=== PATIENT | female | born 1940 | race Caucasian/White ===

== ENCOUNTER 2024-08-09 09:41 | Day surgery (SDC) | payer MEDICARE, SELFPAY ==
--- NOTE | 2024-08-06 07:00 | EKG_ITS ---
[facility] Test Date: 2024-08-06 Pat Name: KATHERINE LU Department: Room: - Gender: Female Yard Coordinator: SYLVESTER : 1940 Requested By: Pawan Christiansen Order Number: [id number] Reading MD: Pawan Christiansen Measurements Intervals [place] Rate: 70 P: 77 HI: 162 QRS: -16 QRSD: 91 T: 49 QT: 361 QTc: 392 Interpretive Statements SINUS RHYTHM VOLTAGE CRITERIA FOR LVH [MEETS CRITERIA IN ONE OF: R(aVL), S(V1), R(V5), R(V5/V6)+S(V1)] POSSIBLE ANTERIOR MYOCARDIAL INFARCTION , OF INDETERMINATE AGE [30 ms Q WAVE IN V3/V4, OR R < 0.2 mV IN V4] Compared to ECG 03/14/2023 19:09:01 Left ventricular hypertrophy now present Myocardial infarct finding now present /store/S0/[id number]/ecg/[id number].pdf
[2024-08-06 11:54] LABS: Basophils % (Auto) 1 % (0-2.5); Eosinophils # (Auto) 0.1 Thou/mm3 (0.0-0.5); Eosinophils % (Auto) 2 % (0-10); Hematocrit 39.7 % (36.0-46.0); Hemoglobin 13.7 g/dL (12.0-16.0); Immature Granulocytes % (Auto) 0 % (0-0); Immature Granulocytes Auto 0.03 Thou/mm3 (0.00-0.00); Lymphocytes # (Auto) 1.7 Thou/mm3 (1.0-4.8); Lymphocytes % (Auto) 24 % (10-50); Mean Corpuscular HGB Conc 34.5 g/dl (31.0-37.0); Mean Corpuscular Hemoglobin 30.6 pg (25.0-35.0); Mean Corpuscular Volume 89 fL (80-100); Monocytes # (Auto) 0.7 Thou/mm3 (0.0-0.8); Monocytes % (Auto) 10 % (0-12); Neutrophils # (Auto) 4.6 Thou/mm3 (1.8-7.7); Neutrophils % (Auto) 64 % (37-80); Nucleated Red Blood Cell % 0 /100 WBC (0); Platelet Count 235 Thou/mm3 (140-440); RDW Standard Deviation 42.8 fL (36.4-46.3); Red Blood Count 4.47 Miln/mm3 (4.00-5.20); White Blood Count 7.3 Thou/mm3 (3.6-11.0)
[2024-08-06 12:04] LABS: Anion Gap 7 (7-16); BUN/Creatinine Ratio 16 Ratio (12-20); Blood Urea Nitrogen 16 mg/dL (9-23); Calcium 9.6 mg/dL (8.3-10.6); Chloride 108 mMol/L (98-107); Glucose 92 mg/dL (74-106); Osmolality,Calculated 286 (275-295); Potassium 4.1 mMol/L (3.4-5.1); Sodium 143 mMol/L (136-145); eGFR 56 See Note
[2024-08-06 12:09] LABS: Partial Thromboplastin Time 25.7 Seconds (22.0-36.0); Prothrombin Time 11.1 Seconds (9.0-12.2)
[2024-08-06 13:55] VITALS: BMI 25.7
[2024-08-09] VITALS (14 sets, daily range): BP systolic 125–162; BP diastolic 55–92; PULSE 65–86; RESP 15–19; TEMP 36.3–37; O2SAT 95–99; BMI 26.3
--- NOTE | 2024-08-09 16:55 | PC.NURSE ---
discharge instructions given to and (yen) right groin looks good, no signs or hematoma or bledding, gauze is clean dry and intact and bilateral dorsalis pulses feel normal
--- NOTE | 2024-08-10 01:04 | ESOP_ITS ---
RE: KATHERINE LU : 1940 DATE OF OPERATION: 08/09/2024 PROCEDURE PERFORMED: 1. Diagnostic right and left heart cardiac catheterization, selective coronary angiogram, and left ventricular angiogram, CPT 93058. 2. Aortic root angiogram and iliofemoral angiogram. 3. Ultrasound-guided access right femoral artery and femoral vein. 4. Conscious sedation 40 minutes duration. DIAGNOSES: Severe aortic stenosis, symptomatic shortness of breath on exertion. HISTORY AND INDICATIONS: The patient is an 84-year-old female with a history of hypertension and has been doing well. Recently she has progressively shortness of breath on exertion. She is known to have severe aortic stenosis in the past, but it has worsened significantly. Aortic velocity has increased to more than 4 m/sec, gradient of 60 mmHg _. Aortic valve area is 0.5 square centimeter on echo hence cardiac catheterization and coronary angiogram prior to recommending TAVR procedure, transcutaneous aortic valve replacement. The patient meets clinical indication for TAVR. DESCRIPTION OF PROCEDURE: The patient was brought to cardiac catheterization lab where she was given 2 mg of Versed, 50 mcg of fentanyl for conscious sedation. Right radial approach was initially taken. The right radial artery was very small, unable to cannulate and the right femoral artery and right femoral vein were cannulated by micropuncture technique. After local anesthesia was given with 1% Xylocaine, a 5-Irish sheath was introduced in the right femoral artery. A 7-Irish sheath was introduced in the right femoral vein. Right heart catheterization was performed with Glennie-Duncan catheter. Cardiac output was obtained. Right heart pressures were measured and found to be normal. Left heart catheterization performed with a 5-Irish pigtail catheter. Aortic root angiogram performed. Left ventricular angiogram performed. Left aortic valve was crossed using a straight guidewire, LV pressure was measured, pull back pressure measured. Subsequently selective right and left coronary angiogram performed by Anjel catheter 5-Irish diagnostic catheter. Multiple views were obtained. Cardiac catheterization showed following findings. HEMODYNAMICS: Right atrial pressure was 0 mmHg. Right ventricular pressure 20/0. Pulmonary artery pressure is 21/1 . Pulmonary wedge pressure is 3 mmHg. The left ventricular pressure is 204/8 mmHg. End diastolic pressure is 12. Aortic pressure 126/49 mmHg. Xwpq-[id number] gradient 70 mmHg and mean gradient appears to at 62 mmHg. Aortic valve area is 0.4 cm2. Cardiac output was 3.37 L/min. Coronary angiogram showed following findings: The right coronary artery large and dominant, appears normal posterior descending artery appears normal. Left coronary system: Left main coronary artery is normal. Left anterior descending artery is normal. Left ventricular angiogram showed normal left ventricular wall motion with LVEF 65 % Aortic valve showed heavy calcification on fluoroscopy. Aortic angiogram showed, aortic root appears normal in size. Ascending aorta, descending thoracic aorta, abdominal aorta and iliac vessels appear normal with good caliber. SUMMARY OF FINDINGS: 1. Severe calcific aortic stenosis with a peak gradient of 75 mmHg, mean gradient of 62 mmHg, aortic valve area of 0.4 cm2 size with critical and severe aortic stenosis. 2. Normal pulmonary artery pressure. 3. Normal coronary arteries. 4. Normal left VENTRICLE FUNCTION_ RECOMMENDATIONS: The patient is an excellent candidate for TAVR procedure. Aortic root angiogram did show evidence of mild aortic regurgitation as well. The patient is a good candidate for TAVR procedure because of severe and critical aortic stenosis and mild aortic regurgitation. We will wait for a TAVR program at [facility]. Dr. Haas will be consulted for the procedure in the next 4-6 weeks. DT: 23:36:23 TT: 00:25:00 Ref: [id number] - TID: [id number] [facility]PITALJeanie
== END 2024-08-09 16:41 | disposition home or self-care (01) ==
LOC: SCCL 09:41
PROVIDERS: PCP Internal Medicine; Referring Provider Internal Medicine Cardiovascular Disease; Visit Provider Internal Medicine Cardiovascular Disease
PROC: (CPT 93460; principal; 2024-08-09 11:30)
DX: I25.118 Atherosclerotic heart disease of native coronary artery with other forms of angina pectoris (principal); I10 Essential (primary) hypertension; I35.0 Nonrheumatic aortic (valve) stenosis; Z01.810 Encounter for preprocedural cardiovascular examination
CPT/HCPCS: 93460; G0278; 36415; 80048; 85025; 85610; 85730; 93005; 99152; 99153; A4649; C1769; C1887; C1894; J0153; J0171; J0282; J0461; J1643; J2250; J2310; J2371; J3010; J3490; Q9967

== ENCOUNTER → 2024-11-10 | Outpatient (CLI) | payer MEDICARE, BC, SELFPAY ==
[2024-11-10 12:24] LABS: Anion Gap 10 (7-16); BUN/Creatinine Ratio 8 Ratio (12-20); Blood Urea Nitrogen 8 mg/dL (9-23); Calcium 9.7 mg/dL (8.3-10.6); Carbon Dioxide 28.3 mMol/L (20.0-31.0); Chloride 105 mMol/L (98-107); Creatinine (Component) 1.0 mg/dL (0.6-1.3); Glucose 101 mg/dL (74-106); Magnesium 1.6 mg/dL (1.6-2.6); Osmolality,Calculated 283 (275-295); Potassium 3.5 mMol/L (3.4-5.1); Sodium 143 mMol/L (136-145); eGFR 56 See Note
== END | disposition home or self-care (01) ==
PROVIDERS: PCP Internal Medicine; Referring Provider Internal Medicine Cardiovascular Disease; Visit Provider Internal Medicine Cardiovascular Disease
DX: I35.0 Nonrheumatic aortic (valve) stenosis (principal)
CPT/HCPCS: 36415; 80048; 83735

== ENCOUNTER 2024-11-27 13:04 | Emergency (ER) | payer MEDICARE, BC, SELFPAY ==
[2024-11-27 13:14] VITALS: BP 138/79; PULSE 94; RESP 19; TEMP 37; O2SAT 98; BMI 24.5
[2024-11-27] MEDS: DiphenhydrAMINE ELIX 25 MG/10 ML UDC 12.5 MG PO (13:51)
[2024-11-27] MEDS: DEXAMETHASONE SOD PHOS INJ 10 MG/ML VIAL PO (13:51)
--- NOTE | 2024-11-27 13:54 | EDNOTE_ITS ---
ED Skin Abcess FB-RME/HPI General Chief complaint: Skin/Abscess/Foreign Body Stated complaint: RASH ON NECK Time Seen by Provider: 11/27/24 13:28 Arrival date/time: 11/27/24 13:04 84-year-old female presents to the emergency department today for plaints of rash on her neck for the last couple of weeks patient reports the rash has improved but still lingers. Patient reports the rash is itchy Limitations: no limitations Related Data Home Medications ?Medication ?Instructions ?Recorded ?Confirmed estradiol 0.5 mg tablet 0.5 mg PO QDAY ##0 07/22/13 08/09/24 hydrochlorothiazide 25 mg tablet 25 mg PO QAM #0 tabs 07/22/13 08/09/24 losartan 50 mg tablet 100 mg PO QDAY 10/04/1807/27 alendronate 70 mg tablet 70 mg PO QWEEK 08/09/2407/27 potassium 20 mg chewable tablet 5 mg PO DAILY 08/09/24 08/09/24 Previous Rx's ?Medication ?Instructions ?Recorded diphenhydramine HCl 12.5 mg/5 mL 12.5 mg (5 mL) PO TID PRN allergy 11/27/24 oral elixir (Diphen) symptoms #118 mL Allergies Allergy/AdvReac Type Severity Reaction Status Date / Time No Known Allergies Allergy Verified 11/27/24 13:05 Review of Systems Review of Systems Systems Reviewed: All systems reviewed, normal except as documented Constitutional Constitutional: Reports system reviewed and no additional complaints, except as documented, Denies fever(s) and Denies headache(s) Eyes Eyes: Reports system reviewed and no additional complaints, except as documented and Denies blurry vision ENT Ears, Nose, Mouth, and Throat: Reports system reviewed and no additional complaints, except as documented, Denies headache(s), Denies nasal congestion and Denies nasal discharge Cardiovascular Cardiovascular: Reports system reviewed and no additional complaints, except as documented, Denies chest pain and Denies dyspnea Respiratory Respiratory: Reports system reviewed and no additional complaints, except as documented, Denies chest congestion, Denies cough and Denies dyspnea Gastrointestinal Gastrointestinal: Reports system reviewed and no additional complaints, except as documented and Denies abdominal pain Integumentary/Breasts Skin/Breast: Reports system reviewed and no additional complaints, except as documented, Reports pruritus and Reports rash (Itchy rash on neck) Neurologic Neurologic: Reports system reviewed and no additional complaints, except as documented, Reports as per HPI and Denies headache(s) Past Medical History Past Medical History NEUROLOGIC: Negative Neurological Disorders CARDIAC: Positive Cardiac Disorders (severe aortic stenosis), Hypercholesterolemia, Edema and Hypertension; Negative Congestive Heart Failure RESPIRATORY: Negative Chronic Obstructive Pulmonary Disease (COPD) GASTROINTESTINAL: Positive Gastrointestinal Disorders, Ulcer and Gastroesophageal Reflux Disease GENITOURINARY: Negative Genitourinary Disorders or Renal Disease MUSCULOSKELETAL: Positive Musculoskeletal Disorders and Arthritis ENT: Positive Cataracts ENDOCRINE: Negative Endocrine Disorders, Diabetes Mellitus Type 1 or Diabetes Mellitus Type 2 HEMATOLOGIC: Negative Blood Disorders OTHER HISTORY: Negative Blood Transfusions, Blood Transfusion Reaction, Anesthesia Reactions or Cancer Surgical History SURGICAL: Positive Hysterectomy and Tubal Ligation; Negative Cardiac Surgery, Pacemaker, Endocrine Surgery, Abdominal Surgery or Joint Replacement Social History SMOKING STATUS: Never smoker ED Exam General Limitations: Present no limitations General appearance: Present alert and in no apparent distress Head Head exam: Present atraumatic Eye Eye exam: Present normal appearance, PERRL and EOMI ENT ENT exam: Present normal exam, normal oropharynx and mucous membranes moist Neck Neck exam: Present normal inspection, full ROM and trachea midline Chest Chest inspection: Present normal inspection and symmetric chest wall rise Respiratory Respiratory exam: Present normal lung sounds bilaterally Cardiovascular Cardiovascular exam: Present regular rate, normal rhythm and normal heart sounds Abdominal Exam Abdominal exam: Present soft and normal bowel sounds Extremities Exam Extremities exam: Present normal inspection and full ROM Back Exam Back exam: Present normal inspection and full ROM Neurological Exam Neurological exam: Present alert, oriented X3 and CN II-XII intact Psychiatric Psychiatric exam: Present normal affect and normal mood Skin Skin exam: Present warm, dry and rash Course Quality Measures none Orders Category Date Time Status Dexamethasone Inj [Decadron Inj] Med 11/27/24 13:30 Discontinued 10 mg PO X1 ONE DiphenhydrAMINE [Benadryl] Med 11/27/24 13:30 Discontinued 12.5 mg PO X1 ONE Vital Signs Vital signs: Vital Signs Temperature 98.6 F 11/27/24 13:14 Pulse Rate 94 11/27/24 13:14 Respiratory Rate 19 11/27/24 13:14 Blood Pressure 138/79 H 11/27/24 13:14 Pulse Oximetry (%) 98 11/27/24 13:14 Oxygen Delivery Method Room Air 11/27/24 13:14 O2 saturation 98% on room air with normal limits Skin / Abscess / Foreign Body MDM Narrative MDM Narrative:: 84-year-old female presents to the emergency department today for plaints of rash on her neck for the last couple of weeks patient reports the rash has improved but still lingers. Patient reports the rash is itchy On exam patient quite well-appearing patient does not appear ill or toxic no acute distress patient has no evidence of anaphylaxis. On exam patient has no evidence of shingles Patient appears to have some sort of contact versus atopic dermatitis Patient to be treated symptomatically Explained to the patient she should follow-up with primary care doctor in the next 24 to 48 hours and for any worsening symptoms return immediately Patient data External records reviewed:: [facility] previous records Clinical information provided by:: patient Social determinants that could affect healthcare access:: none Patient has the following chronic illnesses:: None How is presenting disease/condition affected by chronic disease/condition?: no chronic disease Evaluation data The following diagnostics were reviewed and interpreted by me:: other (specify) (N/A) Lab and/or radiology exams considered but not ordered:: Considered not ordered Interpretation Summary: N/A Medications / Prescriptions Medications or Prescriptions considered but not ordered:: Given Medication administrations:: Medication Administration History Discontinued Medications Dexamethasone Sodium Phosphate (Dexamethasone Sod Phos Inj 10 Mg/Ml Vial) 10 mg PO X1 ONE Stop: 11/27/24 13:31 Last Admin: 11/27/24 13:51 Dose: 10 mg Documented By: NAHUM Diphenhydramine HCl (Diphenhydramine Elix 25 Mg/10 Ml Udc) 12.5 mg PO X1 ONE Stop: 11/27/24 13:31 Last Admin: 11/27/24 13:51 Dose: 12.5 mg Documented By: NAHUM Given Consultations Consultation(s) initiated? (list below): No Diagnosis Skin/Abscess Differential Diagnosis: abscess of skin or subcutaneous tissue, viral exanthem, dermatophytosis, cellulitis and eczema Most likely diagnosis given after review of the tests above:: Rash Admission Indicated Admission indicated?: not indicated Admission Request Was there a request for admission?: No Disposition Plan Disposition Plan: Discharge Discharge Attestation Discharge Attestation: The patient and all family members were given an opportunity to ask questions and understood the discharge instructions. Discharge instructions specifically effects, indications for sooner follow up or return to the emergency department, and the expected course of current diagnosis. Patient condition: Stable Discharge Plan Plan Patient Disposition: HOME (Self Care) Discharge Disposition comment: stable Prescriptions/Referrals Prescriptions/Med Rec: New diphenhydramine HCl [Diphen] 12.5 mg/5 mL elixir 12.5 mg PO TID PRN (Reason: allergy symptoms) Qty: 118 0RF No Action losartan 50 mg tablet 100 mg PO QDAY hydrochlorothiazide 25 MG tablet 25 mg PO QAM Qty: 0 estradiol 0.5 MG tablet 0.5 mg PO QDAY Qty: 0 alendronate 70 mg tablet 70 mg PO QWEEK potassium 20 mg tablet,chewable 5 mg PO DAILY Problem List Clinical Impression: Atopic dermatitis Patient/Caregiver Discharge Instructions Education Materials: ED Atopic Dermatitis (Adult) Additional Instructions: Please follow up with your primary care doctor in the next 24-48hrs for any worsening symptoms return here immediately Print Language: Austrian Stand Alone Forms: Monserr[employer] Award Info., Patient Portal Info Letter PA/JOHANN Supervising Physician PA/JOHANN Supervising Physician: dr gomez
== END 2024-11-27 14:06 | disposition home or self-care (01) ==
PROVIDERS: Emergency Provider Nurse Practitioner Primary Care; PCP Internal Medicine
DX: L20.9 Atopic dermatitis, unspecified (principal)
CPT/HCPCS: 99282; J1100; A9270